=== PATIENT | female | born 1980 | race Caucasian/White ===

== ENCOUNTER 2017-03-30 15:05 | Emergency (ER) | payer MEDICAID ==
[~2017-03-30] VITALS: Wt 67.0 kg
--- NOTE | 2017-03-30 17:36 | ERD ---
ER Documentation Chief Complaint Date/Time DATE: 03/30/17 TIME: 17:25 Chief Complaint INGROWN TOE NAIL HPI 36-year-old female presents emergency department for right big toe swelling and pain that is on and off for more than 2 months. Denies headache, dizziness, blurry vision, neck pain, shoulder pain, chest pain , back pain, abdominal pain, nausea, vomiting, constipation, diarrhea, trauma, injury, falls, numbness or tingling sensation, difficulty walking,recent travel , recent antibiotic use in the last 3 months, fever, chills. No known drug allergies. No past medical history. No surgeries. Does not take any prescription medication at home. Social: Not working this time. Denies smoking, use of alcohol, use of illegal drugs. ROS All systems reviewed and are negative except as per history of present illness. Medications Home Meds Active Scripts Cephalexin* (Keflex*) 500 Mg Capsule, 500 MG PO QID for 5 Days, CAP Prov:PASILABAN,KLAR F 03/30/17 Naproxen* (Naprosyn*) 500 Mg Tablet, 500 MG PO BID Y for PAIN AND/OR INFLAMMATION, #30 TAB Prov:PASILABAN,KLAR F 03/30/17 Reported Medications [None] No Conflict Check 01/30/11 Allergies Allergies: Coded Allergies: No Known Allergy (Verified , 01/30/11) PMhx/Soc History of Surgery: Yes Anesthesia Reaction: No Hx Neurological Disorder: No Hx Respiratory Disorders: No Hx Cardiac Disorders: No Hx Psychiatric Problems: No Hx Miscellaneous Medical Probl: No Hx Alcohol Use: No Hx Substance Use: No Hx Tobacco Use: No Physical Exam Vitals Vital Signs Date Time Temp Pulse Resp B/P Pulse Ox O2 Delivery O2 Flow Rate FiO2 03/30/17 18:26 98.3 61 14 104/54 100 Room Air 03/30/17 15:11 98.1 85 100/57 99 Physical Exam Const: [] Head: Atraumatic Eyes: Normal Conjunctiva ENT: Normal External Ears, Nose and Mouth. Neck: Full range of motion..~ No meningismus. Resp: Clear to auscultation bilaterally Cardio: Regular rate and rhythm, no murmurs Abd: Soft, non tender, non distended. Normal bowel sounds Skin: No petechiae or rashes Back: No midline or flank tenderness Ext: No cyanosis. Right big toe (Middle phalange). Has swelling and redness that is consistent with cellulitis. Right big toe has good and full range of motion and is good flexion and extension of the MTP, PIP, DIP with a score of 5/ 5. No evidence of tendon injury. Right big toenail has no swelling/deformity/ discharge/bleeding/discoloration/tenderness. No evidence of injury. No neurovascular deficits. Left lower extremities unremarkable. Neur: Awake and alert Psych: Normal Mood and Affect Results 24 hrs Current Medications Medications (Trade) Dose Ordered Sig/Marci Route PRN Reason Start Time Stop Time Status Last Admin Dose Admin Ibuprofen (Motrin) 800 mg ONCE ONCE PO 03/30/17 18:00 03/30/17 18:01 DC 03/30/17 18:15 Procedures/MDM 36-year-old female presents emergency department for right big toe swelling and pain that is on and off for more than 2 months. Denies headache, dizziness, blurry vision, neck pain, shoulder pain, chest pain , back pain, abdominal pain, nausea, vomiting, constipation, diarrhea, trauma, injury, falls, numbness or tingling sensation, difficulty walking,recent travel , recent antibiotic use in the last 3 months, fever, chills. No known drug allergies. No past medical history. No surgeries. Does not take any prescription medication at home. Social: Not working this time. Denies smoking, use of alcohol, use of illegal drugs. Physical exam: Right big toe (Middle phalange). Has swelling and redness that is consistent with cellulitis. Right big toe has good and full range of motion and is good flexion and extension of the MTP, PIP, DIP with a score of 5/5. No evidence of tendon injury. Right big toenail has no swelling/deformity/discharge /bleeding/discoloration/tenderness. No evidence of injury. No neurovascular deficits. Left lower extremities unremarkable. Disease process was explained to the patient. She verbalized understanding and agreed with treatment, plan of care, follow-up care. Treatment: Motrin. Reevaluation: Denies pain. No neurovascular deficit no neurological deficits. Differential diagnosis: Gouty arthritis versus septic arthritis versus osteoarthritis versus cellulitis versus ingrown Final diagnosis: Cellulitis Prescription: Naprosyn. Justyna. Follow-up with primary care physician the next 24-48 hours. Come back to emergency department for any new symptoms or any worsening of symptoms. All questions and concerns are answered. Patient verbalized understanding and agreed with the plan of care. Hemodynamically stable on discharge. Departure Diagnosis: Primary Impression: Cellulitis Condition: Stable Additional Instructions: Follow-up with primary care physician the next 24-48 hours. Come back to emergency department for any new symptoms or any worsening of symptoms. All questions and concerns are answered. Patient verbalized understanding and agreed with the plan of care. THEA PARK Mar 30, 2017 17:36
[2017-03-30] MEDS ORDERED: NAPR-260 PO (17:37)
[2017-03-30] MEDS ORDERED: CEPH-443 PO (17:37)
[2017-03-30] MEDS ORDERED: IBUPROFEN 800 MG TAB PO ONE (18:00)
[2017-03-30 18:26] VITALS: BP 104/54; PULSE 61; RESP 14; TEMP 98.3
== END 2017-03-30 18:28 | disposition home or self-care (01) ==
LOC: FTE 15:05
DX: L03.031 Cellulitis of right toe (principal)
CPT/HCPCS: Z7502; Z7610; 99283

== ENCOUNTER 2017-05-25 01:36 | Emergency (ER) | payer MEDICAID ==
[~2017-05-25] VITALS: Ht 154.9 cm; Wt 73.3 kg
[~2017-05-25 01:36] MED LIST: CEPH-443 PO; NAPR-260 PO
[2017-05-25 01:39] VITALS: Ht 154.9 cm; Wt 73.3 kg
[2017-05-25] MEDS ORDERED: ONDANSETRON 4 MG INJ IV STA (02:05)
[2017-05-25] MEDS ORDERED: morphine 4 MG/ML VIAL IV STA (02:05)
[2017-05-25] MEDS ORDERED: SOD CHLORIDE 0.9% 1,000 ML IV STA (02:05)
[2017-05-25 02:39] LABS: URINE BLOOD (Dip) POC 1+ (NEGATIVE)
--- NOTE | 2017-05-25 02:53 | RADRPT ---
PROCEDURE: Abdominal ultrasound, limited. CLINICAL INDICATION: Abdominal pain. TECHNIQUE: Multiple real-time images were acquired of the patient's right upper abdomen utilizing a high resolution transducer. COMPARISON: 09/18/2016. FINDINGS: The liver demonstrates normal echogenicity and size measuring 16.0 cm. There is no focal mass or in trahepatic biliary ductal dilatation. The portal vein is patent. The gallbladder is not distended. Multiple echogenic gallstones are identified. Echogenic sludge is seen within the gallbladder. Th ere is no pericholecystic fluid or gallbladder wall thickening. The common bile duct measures 3.6 m m in maximal dimension. The pancreas is obscured by overlying bowel gas. No free fluid is identifi ed. The right kidney is normal size and echogenicity measuring 10.9 cm. There is no focal renal mass or echogenic calculus identified. There is no obstructive uropathy. IMPRESSION: Gallstones and gallbladder sludge without ultrasound evidence of cholecystitis. Pancreas obscured by overlying bowel gas. .Quan Stokes MD, MD Date Time Electronically viewed and signed by .Quan Stokes MD, MD on 05/25/2017 02:53 .T/
--- NOTE | 2017-05-25 02:59 | ERD ---
ER Documentation Chief Complaint Chief Complaint RUQ ab pain going to back x 3 hrs, hx gallstones HPI This is a 36 year female right upper quadrant abdominal pain on her back for 3 hours. This is consistent with a history of gallstones. No fevers no chills. No nausea no vomiting. Pain is mild to moderate intensity. No other current complaints. No fevers or chills ROS All systems reviewed and are negative except as per history of present illness. Medications Home Meds Active Scripts Cephalexin* (Keflex*) 500 Mg Capsule, 500 MG PO QID for 5 Days, CAP Prov:CHARUILABANTHEA F 03/30/17 Naproxen* (Naprosyn*) 500 Mg Tablet, 500 MG PO BID Y for PAIN AND/OR INFLAMMATION, #30 TAB Prov:CHARUILABANTHEA F 03/30/17 Reported Medications [None] No Conflict Check 01/30/11 Allergies Allergies: Coded Allergies: No Known Allergy (Verified , 01/30/11) PMhx/Soc History of Surgery: Yes Anesthesia Reaction: No Hx Neurological Disorder: No Hx Respiratory Disorders: No Hx Cardiac Disorders: No Hx Psychiatric Problems: No Hx Miscellaneous Medical Probl: No Hx Alcohol Use: No Hx Substance Use: No Hx Tobacco Use: No Physical Exam Vitals Vital Signs Date Time Temp Pulse Resp B/P Pulse Ox O2 Delivery O2 Flow Rate FiO2 05/25/17 01:39 97.6 81 18 100/61 100 Physical Exam Const: [] Head: Atraumatic Eyes: Normal Conjunctiva ENT: Normal External Ears, Nose and Mouth. Neck: Full range of motion..~ No meningismus. Resp: Clear to auscultation bilaterally Cardio: Regular rate and rhythm, no murmurs Abd: Soft, non tender, non distended. Normal bowel sounds Skin: No petechiae or rashes Back: No midline or flank tenderness Ext: No cyanosis, or edema Neur: Awake and alert Psych: Normal Mood and Affect Results 24 hrs Laboratory Tests Test 05/25/17 02:39 Bedside Urine pH (LAB) 6.5 Bedside Urine Protein (LAB) Negative Bedside Urine Glucose (UA) Negative Bedside Urine Ketones (LAB) Negative Bedside Urine Blood 1+ Bedside Urine Nitrite (LAB) Negative Bedside Urine Leukocyte Esterase (L Negative Current Medications Medications (Trade) Dose Ordered Sig/Marci Route PRN Reason Start Time Stop Time Status Last Admin Dose Admin Sodium Chloride (NS) 1,000 ml @ 1,000 mls/hr Q1H STAT IV 05/25/17 02:05 05/25/17 03:04 Morphine Sulfate (morphine) 4 mg ONCE STAT IV 05/25/17 02:05 05/25/17 02:06 DC Ondansetron HCl (Zofran Inj) 4 mg ONCE STAT IV 05/25/17 02:05 05/25/17 02:06 DC Procedures/MDM Decision-making: This is a 36 year female with gallstones. No evidence of cholecystitis on ultrasound. At this point clinically stable. Pain resolved. Stable for outpatient management. Asked to return here in 8 hours for serial abdominal exams. Departure Diagnosis: Primary Impression: Abdominal pain Abdominal location: right upper quadrant Qualified Code: R10.11 - Right upper quadrant abdominal pain Condition: Stable DULCE VELASCO May 25, 2017 02:59
[2017-05-25] MEDS ORDERED: HYDR-902 PO (03:00)
[2017-05-25] MEDS ORDERED: ONDA4TAB14 PO (03:00)
[2017-05-25 03:44] LABS: ADD UMIC YES; UR ASCORBIC ACID NEGATIVE (NEGATIVE); UR BILIRUBIN (Dip) NEGATIVE (NEGATIVE); UR BLOOD (Dip) 1+ mg/dL (NEGATIVE); UR CLARITY SLIGHTLY CLOUDY (CLEAR); UR COLOR YELLOW (YELLOW); UR GLUCOSE (Dip) NEGATIVE (NEGATIVE); UR KETONES (Dip) NEGATIVE (NEGATIVE); UR LEUKOCYTE ESTERASE (Dip) TRACE Leu/ul (NEGATIVE); UR NITRITE (Dip) NEGATIVE (NEGATIVE); UR RBC 6 /HPF (0-5); UR SPECIFIC GRAVITY (Dip) 1.025 (1.003-1.030); UR SQUAMOUS EPITHELIAL CELL FEW /HPF (FEW); UR TOTAL PROTEIN (Dip) NEGATIVE (NEGATIVE); UR UROBILINOGEN (Dip) NEGATIVE (NEGATIVE)
[2017-05-25 03:55] LABS: ALBUMIN/GLOBULIN RATIO 1.14; BILIRUBIN,INDIRECT 0.1 mg/dl (0-1.1); BILIRUBIN,TOTAL 0.1 mg/dl (0.2-1.3); CALCIUM 9.8 mg/dl (8.4-10.2); CREATININE 0.76 mg/dl (0.44-1.00); POTASSIUM 3.8 mmol/L (3.5-5.1); TOTAL PROTEIN 7.5 g/dl (6.1-8.1)
[2017-05-25 04:08] LABS: BASOPHILS % 0.4 % (0.0-2.0); EOSINOPHILS # 0.1 10^3/ul (0.0-0.5); EOSINOPHILS % 1.3 % (0.0-7.0); HEMATOCRIT 36.5 % (37.0-47.0); HEMOGLOBIN 11.8 g/dl (12.0-16.0); LYMPHOCYTES # 2.2 10^3/ul (0.8-2.9); LYMPHOCYTES % 22.1 % (15.0-51.0); MEAN CORPUSCULAR HEMOGLOBIN 26.6 pg (29.0-33.0); MEAN CORPUSCULAR HGB CONC 32.3 g/dl (32.0-37.0); MEAN CORPUSCULAR VOLUME 82.2 fl (82.0-101.0); MEAN PLATELET VOLUME 12.4 fl (7.4-10.4); MONOCYTE # 0.9 10^3/ul (0.3-0.9); MONOCYTES % 8.9 % (0.0-11.0); NEUTROPHIL # 6.6 10^3/ul (1.6-7.5); NEUTROPHILS % 66.8 % (39.0-77.0); PLATELET COUNT 357 10^3/UL (140-415); RED BLOOD COUNT 4.44 10^6/ul (4.20-5.40); RED CELL DISTRIBUTION WIDTH 15.9 % (11.5-14.5); WHITE BLOOD COUNT 9.9 10^3/ul (4.8-10.8)
[2017-05-25 04:52] VITALS: BP 93/58; PULSE 77; RESP 17; TEMP 98.1
== END 2017-05-25 05:13 | disposition home or self-care (01) ==
LOC: E/R 01:36
DX: R10.11 Right upper quadrant pain (principal)
CPT/HCPCS: 36415; 76705; 80053; 81001; 83690; 85025; 96374; 96375; J2270; J2405; J7030; Z7502; 81003